=== PATIENT | female | born 1945 | race Caucasian/White ===

== ENCOUNTER 2018-03-10 17:26 | Emergency (ER) | payer MEDICARE, MEDICAID ==
[~2018-03-10] VITALS: Ht 165.1 cm; Wt 83.0 kg
[2018-03-10] MEDS ORDERED: LOSA25TA12 PO (17:30)
[2018-03-10] MEDS ORDERED: HYDROCODONE/ACETAMINOPHEN 5/325MG TABLET PO ONE (19:15)
[2018-03-10] MEDS ORDERED: IBUPROFEN 600MG TABLET PO ONE (19:15)
[2018-03-10] MEDS ORDERED: MECLIZINE 25MG TABLET PO ONE (19:15)
[2018-03-10] MEDS ORDERED: LORAZEPAM 1MG TABLET PO ONE (21:15)
[2018-03-10 22:46] VITALS: BP 145/88
== END 2018-03-10 22:48 | disposition home or self-care (01) ==
LOC: ER 17:43
DX: S01.01XA Laceration without foreign body of scalp, initial encounter (principal); S63.502A Unspecified sprain of left wrist, initial encounter; R42 Dizziness and giddiness; M85.842 Other specified disorders of bone density and structure, left hand; I10 Essential (primary) hypertension; W01.198A Fall on same level from slipping, tripping and stumbling with subsequent striking against other object, initial encounter; Y93.89 Activity, other specified; Y92.89 Other specified places as the place of occurrence of the external cause
CPT/HCPCS: 12001; 70450; 70551; 73110; 99284; A4565; J8597